=== PATIENT | male | born 1960 | race Caucasian/White ===

== ENCOUNTER → 2024-07-06 18:24 | Outpatient (REF) | payer OTHER, SELFPAY | LOC: RAD 18:24 | PROVIDERS: ATTENDING PHYSICIAN Nurse Practitioner Family | DX: M79.674 Pain in right toe(s) (principal) | CPT/HCPCS: 73660 ==

== ENCOUNTER → 2024-10-08 07:48 | Outpatient (REF) | payer OTHER, SELFPAY | LOC: RAD 07:48 | PROVIDERS: ATTENDING PHYSICIAN Nurse Practitioner Family | DX: I70.0 Atherosclerosis of aorta (principal) | CPT/HCPCS: 76770 ==